=== PATIENT | female | born 1975 | race American Indian/Alaskan Native ===

== ENCOUNTER 2020-05-07 01:01 | Emergency (ER) | payer SELFPAY ==
[2020-05-07 01:12] VITALS: BP 136/92
[2020-05-07 01:34] LABS: Basophils % (Auto) 0.3 % (0.0-1.8); Eosinophils % (Auto) 0.4 % (0.0-4.3); Hematocrit 38.9 % (30.3-42.9); Hemoglobin 12.5 gm/dl (10.1-14.3); Lymphocytes # (Auto) 2.1 K/mm3 (1.2-5.4); Lymphocytes % (Auto) 19.3 % (13.4-35.0); Mean Corpuscular HGB Conc 32 % (30-34); Mean Corpuscular Volume 88 fl (79-97); Monocytes # (Auto) 0.9 K/mm3 (0.0-0.8); Monocytes % (Auto) 8.2 % (0.0-7.3); Platelet Count 177 K/mm3 (140-440); Red Blood Count 4.43 M/mm3 (3.65-5.03); Red Cell Distribution Width 14.5 % (13.2-15.2)
[2020-05-07 01:52] LABS: BUN/Creatinine Ratio 23; Blood Urea Nitrogen 14 mg/dL (7-17); Calcium 8.8 mg/dL (8.4-10.2); Hemolysis Index 8
--- NOTE | 2020-05-07 01:59 | XRay Report ---
CHEST 1 VIEW 05/07/2020 12:48 AM INDICATION / CLINICAL INFORMATION: Chest Pain. COMPARISON: None available. FINDINGS: SUPPORT DEVICES: None. HEART / MEDIASTINUM: No significant abnormality. LUNGS / PLEURA: No significant pulmonary or pleural abnormality. No pneumothorax. ADDITIONAL FINDINGS: No significant additional findings. IMPRESSION: 1. No acute findings. Signer Name: Rupert Prater MD Signed: 05/07/2020 1:55 AM Workstation Name: [id number]
[2020-05-07] MEDS ORDERED: SODIUM CHLORIDE 0.9% 1000 ML 1,000 ML IV ONE ×2 (04:23→04:24)
[2020-05-07] MEDS ORDERED: INSULIN REGULAR, HUMAN 100 UNITS/1 ML IV ONE (04:24)
[2020-05-07] MEDS ORDERED: KETOROLAC 30 MG/1 ML INJ IV ONE (04:37)
[2020-05-07] MEDS ORDERED: CYCLOBENZAPRINE 10 MG TAB PO ONE (04:37)
[2020-05-07] MEDS ORDERED: diazePAM 10 MG/2 ML SYRINGE IV ONE (06:00)
--- NOTE | 2020-05-07 06:44 | Emergency Department Report ---
ED General Adult HPI - General Chief complaint: Chest Pain Stated complaint: BACK PAIN Source: patient Mode of arrival: Ambulatory Limitations: No Limitations - History of Present Illness Initial comments: Patient is a 44-year-old -[place] female with a history of non-insulin- dependent diabetes, chronic low back pain with sciatica, chronic muscle spasms who presents to the ED with complaint of acute onset persistent intermittent lightheadedness, intermittent nausea and vomiting, worsening low back pain that radiates to the lower extremities bilaterally and diffuse pleuritic chest pain with dry cough for the last 2 days, worse in the last 12 hours. Patient states that the symptoms have been intermittent but got worse in the last 12 hours. Patient denies dizziness, syncope, shortness of breath, fever, chills, headache, fall, traumatic injury, abdominal pain, diarrhea, dysuria, urinary frequency and urgency, hematuria, hematochezia, hematemesis or palpitations. MD Complaint: back pain, chest pain; nausea, vomiting and lightheadedness -: Sudden, days(s) (2) Location: chest, back, abdomen Radiation: back, neck Severity scale (0 -10): 7 Quality: aching, sharp Consistency: constant Improves with: none Worsens with: movement Associated Symptoms: denies other symptoms, chest pain, loss of appetite, malaise, nausea/vomiting. denies: confusion, cough, diaphoresis, fever/chills, headaches, rash, seizure, shortness of breath, syncope, weakness, other Treatments Prior to Arrival: none - Related Data Previous Rx's Medication Instructions Recorded Last Taken Type Ondansetron [Zofran Odt] 4 mg PO Q6HR PRN #20 tab.rapdis 05/07/20 Unknown Rx glipiZIDE [Glucotrol] 10 mg PO BID #60 tab 05/07/20 Unknown Rx methOCARBAMOL [Robaxin TAB] 750 mg PO Q8H PRN #30 tablet 05/07/20 Unknown Rx traMADoL [Ultram] 50 mg PO Q6HR PRN #12 tablet 05/07/20 Unknown Rx Allergies Allergy/AdvReac Type Severity Reaction Status Date / Time metformin Allergy Unknown Verified 05/07/20 01:11 ED Review of Systems ROS: Stated complaint: BACK PAIN Other details as noted in HPI Constitutional: denies: chills, fever Eyes: denies: eye pain, eye discharge, vision change ENT: denies: ear pain, throat pain Respiratory: denies: cough, shortness of breath, wheezing Cardiovascular: chest pain (pleuritic chest pain). denies: palpitations Endocrine: no symptoms reported Gastrointestinal: nausea, vomiting. denies: abdominal pain, diarrhea Genitourinary: denies: urgency, dysuria, discharge Musculoskeletal: back pain, arthralgia (lower back pain; bilateral lower extremity pain), myalgia. denies: joint swelling Skin: denies: rash, lesions Neurological: denies: headache, weakness, paresthesias Psychiatric: denies: anxiety, depression Hematological/Lymphatic: denies: easy bleeding, easy bruising ED Past Medical Hx - Past Medical History Previous Medical History?: Yes Hx Diabetes: Yes Additional medical history: Chronic low back pain; Muscle spasm - Surgical History Past Surgical History?: Yes Hx Cholecystectomy: Yes Additional Surgical History: left shoulder,Knee, back - Social History Smoking Status: Former Smoker Substance Use Type: None - Medications Home Medications: Home Medications Medication Instructions Recorded Confirmed Last Taken Type Ondansetron [Zofran Odt] 4 mg PO Q6HR PRN #20 tab.rapdis 05/07/20 Unknown Rx glipiZIDE [Glucotrol] 10 mg PO BID #60 tab 05/07/20 Unknown Rx methOCARBAMOL [Robaxin TAB] 750 mg PO Q8H PRN #30 tablet 05/07/20 Unknown Rx traMADoL [Ultram] 50 mg PO Q6HR PRN #12 tablet 05/07/20 Unknown Rx ED Physical Exam - General Limitations: No Limitations General appearance: alert, in no apparent distress - Head Head exam: Present: atraumatic, normocephalic, normal inspection - Eye Eye exam: Present: normal appearance, PERRL, EOMI Pupils: Present: normal accommodation - ENT ENT exam: Present: normal exam, normal orophraynx, mucous membranes moist, TM's normal bilaterally, normal external ear exam - Neck Neck exam: Present: normal inspection, full ROM - Respiratory Respiratory exam: Present: normal lung sounds bilaterally, chest wall tenderness (Palpable reproducible diffuse chest wall tenderness). Absent: respiratory distress, wheezes, rales, rhonchi, decreased breath sounds, prolonged expiratory - Cardiovascular Cardiovascular Exam: Present: regular rate, normal rhythm, normal heart sounds. Absent: systolic murmur, diastolic murmur, rubs, gallop - GI/Abdominal GI/Abdominal exam: Present: soft, normal bowel sounds. Absent: tenderness, guarding, rebound, hyperactive bowel sounds, hypoactive bowel sounds - Extremities Exam Extremities exam: Present: normal inspection, full ROM, normal capillary refill. Absent: tenderness, pedal edema, joint swelling - Back Exam Back exam: Present: normal inspection, full ROM, tenderness (Palpable lumbosacral paraspinal musculoskeletal tenderness), muscle spasm, paraspinal tenderness - Neurological Exam Neurological exam: Present: alert, oriented X3, CN II-XII intact, normal gait, reflexes normal - Psychiatric Psychiatric exam: Present: normal affect, normal mood, anxious - Skin Skin exam: Present: warm, dry, intact, normal color. Absent: rash ED Course Vital Signs 05/07/20 01:10 Temperature 98.2 F Pulse Rate 92 H Respiratory 20 Rate Blood Pressure 136/92 O2 Sat by Pulse 99 Oximetry ED Medical Decision Making - Lab Data Result diagrams: 05/07/20 01:25 05/07/20 01:25 - EKG Data EKG shows normal: sinus rhythm Rate: normal - EKG Data Interpretation: normal EKG 05/09/20 19:55 The EKG showed normal sinus rhythm with a ventricular rate of [address] or T wave abnormalities. - Radiology Data Radiology results: report reviewed, image reviewed Findings [address] [address] XRay Report Signed Patient: LU ELLIS MR#: [id number] : 1975 Acct:[id number] Age/Sex: 44 / F ADM Date: 05/07/20 Loc: ED Attending Dr: Ordering Physician: ED MD PATY Date of Service: 05/07/20 Procedure(s): XR chest 1V ap Accession Number(s): [id number] cc: ED MD PATY Fluoro Time In Minutes: CHEST 1 VIEW 05/07/2020 12:48 AM INDICATION / CLINICAL INFORMATION: Chest Pain. COMPARISON: None available. FINDINGS: SUPPORT DEVICES: None. HEART / MEDIASTINUM: No significant abnormality. LUNGS / PLEURA: No significant pulmonary or pleural abnormality. No p neumothorax. ADDITIONAL FINDINGS: No significant additional findings. IMPRESSION: 1. No acute findings. Signer Name: Rupert Prater MD Signed: 05/07/2020 1:55 AM Workstation Name: [email or web address] Transcribed By: TL Dictated By: Rupert Prater MD Electronically Authenticated By: Rupert Prater MD Signed Date/Time: 05/07/20154 DD/ 3 TD/TT: - Medical Decision Making This is a 44-year-old -[place] female with a history of [id number]-tlddmlenw diabetes, chronic low back pain with sciatica, chronic muscle spasms who presents to the ED with complaint of acute onset persistent intermittent lightheadedness, intermittent nausea and vomiting, worsening low back pain that radiates to the lower extremities bilaterally and diffuse pleuritic chest pain with dry cough for the last 2 days, worse in the last 12 hours. Patient states that the symptoms have been intermittent but got worse in the last 12 hours. In the ED, patient is alert and oriented x3 and is not in distress. Patient however appears to be in pain, crying and screaming in the room stating that her muscle spasms are getting worse. The EKG showed normal sinus rhythm with a ventricular rate of 95 bpm, and no ST or T wave abnormalities. Chest x-ray showed no acute cardiopulmonary abnormalities or pneumonitis. Patient was treated for pain in the ED and also given Valium. Lab test results were reviewed and showed hyperglycemia of 503 mg/dL and acute hyponatremia of 134 mmol/L. The rest of the lab test results were nonactionable including initial and repeat troponin levels. Patient received 2 L of normal saline IV bolus and insulin in the ED. On reevaluation, patient's pain is well controlled medications. Patient final blood sugar was 174 mg/dL. Patient was discharged home on medications and advised to follow-up with her primary care physician in 5 to 7 days for reevaluation or return to the ED immediately if symptoms get worse. - Differential Diagnosis Muscle spasm; CAD; Hyperglycemia; Chronic pain; Muscle strain; UTI Critical care attestation.: If time is entered above; I have spent that time in minutes in the direct care of this critically ill patient, excluding procedure time. ED Disposition Clinical Impression: Acute nonspecific chest pain with low risk of coronary artery disease, Spasm of muscle of lower back Hyperglycemia due to type 2 diabetes mellitus Qualifiers: Diabetes mellitus chcf insulin use: without long term care administrator use Qualified Code(s): E11.65 - Type 2 diabetes mellitus with hyperglycemia Chronic low back pain with bilateral sciatica Qualifiers: Back pain laterality: bilateral Qualified Code(s): M54.42 - Lumbago with sciatica, left side Disposition: TO HOME OR SELFCARE Is pt being admited?: No Does the pt Need Aspirin: No Condition: Stable Instructions: Chest Pain (ED), Diabetes Mellitus Type 2 in Adults (ED), Lumbar Radiculopathy (ED), Arthralgia (ED) Additional Instructions: Take medication with food, drink plenty of fluids and follow-up with your primary care physician in 5 to 7 days for reevaluation. Return to the ED immediately if symptoms get worse. Prescriptions: glipiZIDE [Glucotrol] 10 mg PO BID #60 tab methOCARBAMOL [Robaxin TAB] 750 mg PO Q8H PRN #30 tablet PRN Reason: Muscle Spasm traMADoL [Ultram] 50 mg PO Q6HR PRN #12 tablet PRN Reason: Pain Ondansetron [Zofran Odt] 4 mg PO Q6HR PRN #20 tab.rapdis PRN Reason: Nausea Referrals: [facility] [Provider Group] - 3-5 Days [facility] [Outside] - 3-5 Days Time of Disposition: 06:45 Print Language: TAJIK
== END 2020-05-07 07:20 | disposition home or self-care (01) ==
LOC: ED 01:01
DX: E11.65 Type 2 diabetes mellitus with hyperglycemia (principal); M54.42 Lumbago with sciatica, left side; M62.830 Muscle spasm of back; R07.89 Other chest pain; Z90.49 Acquired absence of other specified parts of digestive tract; Z87.891 Personal history of nicotine dependence; Z88.6 Allergy status to analgesic agent
CPT/HCPCS: 36415; 71045; 80048; 82962; 84484; 85025; 93005; 96361; 96374; 96375; 99284; J1885; J3360; J7030; J1815